=== PATIENT | male | born 1980 | race Caucasian/White ===

== ENCOUNTER 2018-01-10 18:40 | Emergency (ER) | payer MEDICAID, OTHER ==
[2018-01-10] MEDS: FLUORESCEIN STRIP BOTH EYES (23:16)
[2018-01-10] MEDS: TETRACAINE 0.5% 4 ML OPH BOTH EYES (23:16)
== END 2018-01-10 23:45 | disposition home or self-care (01) ==
LOC: E/R 18:40
DX: H10.33 Unspecified acute conjunctivitis, bilateral (principal); R40.2142 Coma scale, eyes open, spontaneous, at arrival to emergency department; R40.2252 Coma scale, best verbal response, oriented, at arrival to emergency department; R40.2362 Coma scale, best motor response, obeys commands, at arrival to emergency department
CPT/HCPCS: 99283; Z7502